=== PATIENT | female | born 2000 | race Caucasian/White ===

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

== ENCOUNTER 2022-04-19 03:30 | Emergency (ER) | payer OTHER ==
[~2022-04-19] VITALS: Ht 154.9 cm; Wt 54.0 kg
[~2022-04-19 03:30] MED LIST: OMEP20EC11 PO
[2022-04-19 03:39] VITALS: BP 139/75
--- NOTE | 2022-04-19 03:43 | NUR ---
PT TO BED 12
--- NOTE | 2022-04-19 04:00 | NUR ---
ASSUME CARE OF PT, PT C/O RUQ ABD PAIN, PT STATES WHITE VAGINAL DISCHARGE X 2 MONTHS, PT TRIED OTC CREAMS WITH NO RELIEF, PT PLACED IN GOWN, PT ON MONITOR, NO MEDICAL HISTORY.
[2022-04-19] MEDS ORDERED: KETOROLAC 15 MG/ML VIAL IVP ONE (05:00)
[2022-04-19 05:15] LABS: BASOPHILS % (AUTO) 0.4 % (0.0-2.0); EOSINOPHILS % (AUTO) 0.2 % (0.0-4.0); HEMATOCRIT 37.3 % (36-48); HEMOGLOBIN 12.5 g/dL (12.0-16.0); LYMPHOCYTES # (AUTO) 1.5 K/uL (2.5-16.5); MEAN CORPUSCULAR HEMOGLOBIN 31 pg (27-31); MEAN CORPUSCULAR HGB CONC 33 g/dL (33-37); MEAN CORPUSCULAR VOLUME 92.7 fL (80-94); MONOCYTES # (AUTO) 0.4 K/uL (0.8-1.0); MONOCYTES % (AUTO) 4.7 % (1.7-9.3); NEUTROPHILS # (AUTO) 7.1 K/uL (1.8-7.7); NEUTROPHILS % (AUTO) 78.7 % (42.2-75.2); PLATELET COUNT (AUTO) 238 K/uL (140-450); RED BLOOD CELL COUNT(AUTO) 4.03 MIL/uL (4.20-5.40); WHITE BLOOD COUNT (AUTO) 9.1 K/uL (4.5-11.0)
--- NOTE | 2022-04-19 05:15 | NUR ---
AT BEDSIDE WITH DR NORIEGA AND MED STUDENT PERFORMING PELVIC EXAM.
--- NOTE | 2022-04-19 05:24 | NUR ---
wet mount taken to lab, cole made aware.
[2022-04-19] MEDS ORDERED: DOXYCYCLINE 100 MG in DEXTROSE 5% 100 ML IV STA (05:26)
[2022-04-19] MEDS ORDERED: cefOXitin 2,000 MG in DEXTROSE 5% 50 ML IV ONE (05:30)
--- NOTE | 2022-04-19 05:30 | NUR ---
PT STATES PAIN HAS REDUCED WITH MEDICATION.
[2022-04-19 05:35] LABS: ALBUMIN 3.8 g/dL (3.4-5.0); ANION GAP 13.8 (8-16); CREATININE 0.7 mg/dL (0.6-1.3); POTASSIUM 3.8 mmol/L (3.5-5.1); TOTAL BILIRUBIN 0.3 mg/dL (0.0-1.0)
[2022-04-19] MEDS ORDERED: DOXYCYCLINE 100 MG VIAL IV ONE (05:48)
[2022-04-19] MEDS ORDERED: metroNIDAZOLE 250 MG TAB PO ONE (05:50)
--- NOTE | 2022-04-19 06:17 | NUR ---
Ultrasound at bedside.
[2022-04-19 06:26] LABS: APPEARANCE,URINE CLEAR (CLEAR); BILIRUBIN,URINE NEGATIVE (NEGATIVE); BLOOD, URINE NEGATIVE (NEGATIVE); COLOR,URINE YELLOW (YELLOW); LEUKOCYTE ESTERASE ,URINE 2+ (NEGATIVE); NITRITE, URINE NEGATIVE (NEGATIVE); PH,URINE 6.5 (5.0-9.0); UGLUCOSE NEGATIVE (NEGATIVE)
[2022-04-19 06:36] LABS: RBC,URINE 0-5 /HPF (0-5)
[2022-04-19] MEDS ORDERED: DOXY-690 PO (07:05)
[2022-04-19] MEDS ORDERED: NAPR-54 PO (07:05)
[2022-04-19] MEDS ORDERED: METR-435 PO (07:05)
[2022-04-19] MEDS ORDERED: NITR100C7 PO (07:06)
[2022-04-19 07:19] VITALS: BP 104/53
--- NOTE | 2022-04-19 07:20 | NUR ---
Patient discharged with v/s stable. Written and verbal after care instructions given and explained. Patient verbalized understanding. Ambulatory with steady gait. All questions addressed prior to discharge. Advised to follow up with PMD.
== END 2022-04-19 07:20 | disposition home or self-care (01) ==
LOC: MED 03:30
DX: N76.0 Acute vaginitis (principal); N39.0 Urinary tract infection, site not specified; K21.9 Gastro-esophageal reflux disease without esophagitis; Z90.49 Acquired absence of other specified parts of digestive tract
CPT/HCPCS: 36415; 76856; 80053; 81001; 81025; 85025; 87070; 87086; 87210; 87491; 93976; 96365; 96367; 96375; 99285; J0694; J1885; J3490; Q0092; J7060

== ENCOUNTER 2022-05-25 22:25 | Emergency (ER) | payer OTHER ==
[~2022-05-25] VITALS: Ht 154.9 cm; Wt 52.3 kg
[~2022-05-25 22:25] MED LIST changes: +DOXY-690 PO; +METR-435 PO; +NAPR-54 PO; +NITR100C7 PO
[2022-05-25 22:38] VITALS: BP 133/85
--- NOTE | 2022-05-25 22:51 | NUR ---
PATIENT PROVIDED WITH A CUP FOR A URINE SAMPLE AND AMBULATED BACK TO THE [facility] IN STABLE CONDITION
--- NOTE | 2022-05-25 23:56 | NUR ---
PT TAKEN TO BED 9
--- NOTE | 2022-05-26 | NUR ---
PT AMBULATED TO ED 9, PT PLACED IN GOWN AND PLACED ON MONITOR, CC EPIGASTRIC PAIN, DENIES VOMITTING.
[2022-05-26 00:07] LABS: APPEARANCE,URINE CLEAR (CLEAR); BILIRUBIN,URINE NEGATIVE (NEGATIVE); BLOOD, URINE NEGATIVE (NEGATIVE); COLOR,URINE YELLOW (YELLOW); LEUKOCYTE ESTERASE ,URINE TRACE (NEGATIVE); NITRITE, URINE NEGATIVE (NEGATIVE); PH,URINE 6.5 (5.0-9.0); UGLUCOSE NEGATIVE (NEGATIVE)
[2022-05-26 00:08] LABS: BASOPHILS # (AUTO) 0.1 K/uL (0.00-0.22); BASOPHILS % (AUTO) 0.8 % (0.0-2.0); EOSINOPHILS # (AUTO) 0.1 K/uL (0-0.4); EOSINOPHILS % (AUTO) 1.1 % (0.0-4.0); HEMATOCRIT 37.4 % (36-48); HEMOGLOBIN 12.9 g/dL (12.0-16.0); LYMPHOCYTES # (AUTO) 2.9 K/uL (2.5-16.5); LYMPHOCYTES % (AUTO) 31.5 % (20.5-51.1); MEAN CORPUSCULAR HEMOGLOBIN 32 pg (27-31); MEAN CORPUSCULAR HGB CONC 35 g/dL (33-37); MONOCYTES # (AUTO) 0.6 K/uL (0.8-1.0); MONOCYTES % (AUTO) 6.4 % (1.7-9.3); NEUTROPHILS # (AUTO) 5.5 K/uL (1.8-7.7); NEUTROPHILS % (AUTO) 60.2 % (42.2-75.2); PLATELET COUNT (AUTO) 228 K/uL (140-450); RED BLOOD CELL COUNT(AUTO) 4.03 MIL/uL (4.20-5.40); RED CELL DISTRIBUTION WIDTH 12.9 % (11.6-13.7); WHITE BLOOD COUNT (AUTO) 9.2 K/uL (4.5-11.0)
[2022-05-26 00:16] LABS: RBC,URINE 0-5 /HPF (0-5); WBC,URINE 0-5 /HPF (0-5)
[2022-05-26 00:25] LABS: ALBUMIN 4.2 g/dL (3.4-5.0); ANION GAP 14.7 (8-16); CARBON DIOXIDE 25.1 mmol/L (21-32); CREATININE 0.8 mg/dL (0.6-1.3); POTASSIUM 3.8 mmol/L (3.5-5.1); TOTAL BILIRUBIN 0.2 mg/dL (0.0-1.0)
[2022-05-26] MEDS ORDERED: MAG-27 PO (01:04)
[2022-05-26] MEDS ORDERED: DICYCLOMINE HCL LIQUID 20 MG, ALUMINUM HYD/MAG/SIMETHICONE 30 ML, LIDOCAINE VISCOUS 2% ... PO ONE ×3 (01:20)
[2022-05-26] MEDS ORDERED: DICYCLOMINE HCL LIQUID 10 MG/5 ML UDC ONE (01:28)
[2022-05-26] MEDS ORDERED: ALUMINUM HYD/MAG/SIMETHICONE 30 ML UDC ONE (01:28)
--- NOTE | 2022-05-26 01:35 | NUR ---
Patient discharged with v/s stable. Written and verbal after care instructions given and explained. Patient alert, oriented and verbalized understanding of instructions. Ambulatory with steady gait. All questions addressed prior to discharge. ID band removed. Patient advised to follow up with PMD. Rx SENT TO PHARMACY. Patient educated on indication of medication including possible reaction and side effects. Opportunity to ask questions provided and answered.
[2022-05-26 01:39] VITALS: BP 124/60
== END 2022-05-26 01:33 | disposition home or self-care (01) ==
LOC: MED 22:25
DX: K21.9 Gastro-esophageal reflux disease without esophagitis (principal); F17.200 Nicotine dependence, unspecified, uncomplicated; Z90.49 Acquired absence of other specified parts of digestive tract
CPT/HCPCS: 36415; 80053; 81001; 81025; 83690; 85025; 87086; 99283